=== PATIENT | female | born 2000 | race Hispanic/Latino ===

== ENCOUNTER 2019-10-10 19:42 | Emergency (ER) | payer OTHER, BC ==
[~2019-10-10] VITALS: Ht 160 cm; Wt 79.8 kg
[2019-10-10 19:43] VITALS: BP 123/75
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
[2019-10-10] MEDS ORDERED: NS 1000ML 1,000 ML IV SCH (20:00)
[2019-10-10] MEDS ORDERED: DILAUDID IV ONE (20:00)
[2019-10-10 20:15] LABS: BASOPHIL % 0.3 % (0.0-0.2); EOSINOPHIL # 0.1 10^3/uL (0.0-0.2); EOSINOPHIL % 1.5 % (0.0-5.0); HEMOGLOBIN 12.2 g/dL (12.0-15.0); LYMPHOCYTES # 1.6 10^3/uL (1.0-4.8); LYMPHOCYTES % 25.4 % (24.0-44.0); MEAN CELL HGB 29.7 pg (26-34); MEAN CELL HGB CONCENTRATION 32.4 g/dL (33-37); MEAN CORP VOLUME 91.7 fL (78-100); MEAN PLATELET VOLUME 12.5 fL (7.8-11.0); MONOCYTES % 15.8 % (5.0-12.0); NEUTROPHIL # 3.5 10^3/uL (1.8-7.7); NEUTROPHILS % 56.8 % (41.0-85.0); RED CELL DISTRIBUTION WIDTH 15.6 % (11.5-14.5); WHITE BLOOD CELL 6.1 10^3/uL (4.5-11.0)
[2019-10-10] MEDS ORDERED: DILAUDID ONE (20:15)
[2019-10-10] MEDS ORDERED: NS 1000ML 1,000 ML ONE (20:15)
[2019-10-10 20:34] LABS: CALCIUM 8.5 mg/dL (8.4-10.5); CARBON DIOXIDE 26.2 mmol/L (20.0-32)
[2019-10-10 20:45] VITALS: BP 115/84
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
--- NOTE | 2019-10-10 21:42 | NUR ---
TO CT PATIENT TO CT VIA STRETCHER WITH GALINA MARINA
[2019-10-10 21:45] VITALS: BP 125/84
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
[2019-10-10] MEDS ORDERED: ROBAXIN PO STA (22:42)
[2019-10-10 22:45] VITALS: BP 129/93
[2019-10-10] MEDS ORDERED: DECADRON ONE (22:56)
[2019-10-10] MEDS ORDERED: NAPROXEN PO ONE ×2 (22:57→23:00)
[2019-10-10] MEDS ORDERED: FLEXERIL ONE (22:58)
[2019-10-10] MEDS ORDERED: DECADRON IV ONE (23:00)
[2019-10-10 23:08] LABS: BILIRUBIN,URINE NEGATIVE (NEGATIVE); UROBILINOGEN,URINE NORMAL (NEGATIVE)
[2019-10-10] MEDS ORDERED: FLEXERIL PO STA (23:08)
[2019-10-10 23:16] LABS: APPEARANCE,URINE CLEAR (CLEAR); UA COLOR YELLOW (YELLOW)
[2019-10-10 23:40] VITALS: BP 124/74
== END 2019-10-10 23:40 | disposition home or self-care (01) ==
LOC: EDBD 19:42 → ER 19:42
DX: M54.2 Cervicalgia (principal); M79.601 Pain in right arm; Z79.1 Long term (current) use of non-steroidal anti-inflammatories (NSAID); V30 Occupant of three-wheeled motor vehicle injured in collision with pedestrian or animal; Y93.89 Activity, other specified; Y92.488 Other paved roadways as the place of occurrence of the external cause; Y99.8 Other external cause status
CPT/HCPCS: 36415; 70450; 71260; 72125; 73030; 73070; 74177; 80053; 81002; 82550; 84703; 85025; 96374; 96375; 99285; J1100; J1170; J7030; Q9965